=== PATIENT | female | born 1950 | race Caucasian/White ===

== ENCOUNTER → 2016-03-26 | Outpatient (CLI) | payer OTHER | LOC: CCC 13:25 | DX: E03.9 Hypothyroidism, unspecified (principal) | CPT/HCPCS: 36415; 84443 ==

== ENCOUNTER → 2016-04-09 | Outpatient (CLI) | payer OTHER | LOC: RAD 13:39 | DX: R39.15 Urgency of urination (principal); R39.14 Feeling of incomplete bladder emptying | CPT/HCPCS: 76857 ==

== ENCOUNTER → 2016-04-19 | Outpatient (CLI) | payer OTHER | LOC: CCC 13:44 | DX: E03.9 Hypothyroidism, unspecified (principal); R35.1 Nocturia | CPT/HCPCS: 36415; 84443; 87086; 87088; 87186 ==

== ENCOUNTER → 2016-06-07 | Outpatient (CLI) | payer OTHER ==
[2016-06-07 13:49] LABS: BLOOD UREA NITROGEN 17 mg/dL (7-20); CHOLESTEROL 219.77 mg/dL (0-200); CREATININE RESULT 0.74 mg/dL (0.52-1.25); Direct HDL 69 mg/dL (>40); TRIGLYCERIDES 127 mg/dL (<150)
[2016-06-07 14:01] LABS: DIRECT LDL 113 mg/dL (<100)
== END ==
LOC: CCC 11:54
DX: E03.9 Hypothyroidism, unspecified (principal); E78.5 Hyperlipidemia, unspecified; I10 Essential (primary) hypertension
CPT/HCPCS: 36415; 80061; 82565; 84443; 84520

== ENCOUNTER → 2017-07-10 | Outpatient (CLI) | payer MEDICARE, MEDICAID ==
--- NOTE | 2017-07-11 09:00 | WOMENS IMAGING REPORT ---
EXAM DESCRIPTION: 3D SCREENING MAMMO BILAT COMPLETED DATE/TIME: 07/10/2017 2:49 pm REASON FOR STUDY: ROUTINE SCREENING;Z12.31 Z12.31 ENCNTR SCREEN MAMMOGRAM FOR MALIGNANT NEOPLASM OF PATRIZIA COMPARISON: None. TECHNIQUE: Standard craniocaudal and mediolateral oblique views of each breast recorded using digita l acquisition and breast tomosynthesis. LIMITATIONS: None. FINDINGS: Findings present which are benign by mammographic criteria. No suspicious masses, calcifi cations or architectural distortion. Pertinent benign findings: Benign skin and breast parenchymal calcifications bilaterally Read with the assistance of CAD. .[facility] - R2 Cenova Version 1.3 .[facility] Imaging - R2 Cenova Version 1.3 .[facility] - R2 Cenova Version 2.4 .[facility] [place] - R2 Cenova Version 2.4 .[facility] - R2 [employer] Version 9.2 Benign mammographic findings may include one or more of the following: Smooth masses, popcorn/rim/co arse calcifications, asymmetries, post-procedure changes, and lesions with long-standing stability. IMPRESSION: BENIGN MAMMOGRAPHIC FINDINGS. BIRADS 2 BREAST DENSITY: c. The breasts are heterogeneously dense, which may obscure small masses. BIRAD: 2 BENIGN FINDING(S) RECOMMENDATION: RECOMMENDATION: ROUTINE SCREENING Please continue yearly bilateral screening mammography/tomosynthesis in July 2018 COMMENT: The patient has been notified of the results by letter per [place] requirements. Additional no tification policies are in place for contacting patient with suspicious or incomplete findings. Quality ID #225: The [employer] recommends an annual screening mammogram for women aged 40 years or over. This facility utilizes a reminder system to ensure that all patients receive reminder letters, and/or direct phone calls for appointments. This includes reminders for routine scr eening mammograms, diagnostic mammograms, or other Breast Imaging Interventions when appropriate. Th is patient will be placed in the appropriate reminder system. The [employer] (ACR) has developed recommendations for screening MRI of the breast s in certain patient populations, to be used in conjunction with mammography. Breast MRI surveillanc e may be appropriate for women with more than 20% lifetime risk of developing breast cancer as deter mined by genetic testing, significant family history of the disease, or history of mantle radiation f or Hodgkins Disease. ACR Practice Guidelines 2008. DBT Technology DBT is a type of tomographic mammography. With conventional mammography, overlapping breast tissue ma y make lesions difficult to detect, even with good compression. DBT uses an x-ray tube that rotates a round the breast, taking images at different angles. These images are then combined to create thin sl ices of the breast that the radiologist can view as a 3D reconstruction. The [employer] unit can perform full-field digital mammograms (2D imaging); or DBT (3D imaging); or both, in a combination mode that quickly performs both the mammogram and the tomosynthesis scan while the breast is still compressed. PQRS 6045F: Fluoroscopic imaging is not utilized for breast tomosynthesis. TECHNICAL DOCUMENTATION: FINDING NUMBER: (1) ASSESSMENT: (1) JOB ID: [id number] [employer]- All Rights Reserved Reading location - IP/workstation name: [facility]-RR2
== END ==
LOC: WI 13:46
PROVIDERS: ATTEND Internal Medicine
DX: Z12.31 Encounter for screening mammogram for malignant neoplasm of breast (principal)
CPT/HCPCS: 77063; 77067

== ENCOUNTER → 2017-12-03 | Outpatient (CLI) | payer MEDICARE, MEDICAID ==
--- NOTE | 2017-12-03 14:41 | RADIOLOGY REPORT (SQ) ---
EXAM DESCRIPTION: CT HEAD WITHOUT COMPLETED DATE/TIME: 12/03/2017 2:30 pm REASON FOR STUDY: TRAUMA SUBDURAL HEM W LOC >24 HR W RET CONSC LEV, INIT (S06.5X5A) S06.5X5A TRAUMA SUBDURAL HEM W LOC >24 HR W RET CONSC LEV, INIT COMPARISON: None. TECHNIQUE: Axial images acquired through the brain without intravenous contrast. Images reviewed wi th bone, brain and subdural windows. Additional sagittal and coronal reconstructions were generated. Images stored on PACS. All CT scanners at this facility use dose modulation, iterative reconstruction, and/or weight based d osing when appropriate to reduce radiation dose to as low as reasonably achievable (ALARA). [facility]: Dose Right [facility]: CareDose [facility]: Dose Right [facility]: Teradose 4D [facility]: Mobile Complete RADIATION DOSE: CT Rad equipment meets quality standard of care and radiation dose reduction techniq ues were employed. CTDIvol: 48.7 mGy. DLP: 979 mGy-cm. mGy. LIMITATIONS: None. FINDINGS: VENTRICLES: Normal size and contour. CEREBRUM: No masses. No hemorrhage. No midline shift. No evidence for acute infarction. Normal gra y/white matter differentiation. No areas of low density in the white matter. CEREBELLUM: No masses. No hemorrhage. No alteration of density. No evidence for acute infarction. EXTRAAXIAL SPACES: No fluid collections. No masses. ORBITS AND GLOBE: No intra- or extraconal masses. Normal contour of globe without masses. CALVARIUM: No fracture. PARANASAL SINUSES: Mucoperiosteal thickening in the left maxillary sinus. SOFT TISSUES: No mass or hematoma. OTHER: No other significant finding. IMPRESSION: NORMAL BRAIN CT WITHOUT CONTRAST. EVIDENCE OF ACUTE STROKE: NO. COMMENT: Quality ID # 436: Final reports with documentation of one or more dose reduction techniques (e.g., Automated exposure control, adjustment of the mA and/or kV according to patient size, use of iterative reconstruction technique) TECHNICAL DOCUMENTATION: JOB ID: [id number] [employer]- All Rights Reserved Reading location - IP/workstation name: [email or web address]
== END ==
LOC: RAD 13:49
PROVIDERS: ATTEND Internal Medicine
DX: S06.5X5A Traumatic subdural hemorrhage with loss of consciousness greater than 24 hours with return to pre-existing conscious level, initial encounter (principal); X58.XXXA Exposure to other specified factors, initial encounter; Y93.9 Activity, unspecified; Y92.9 Unspecified place or not applicable
CPT/HCPCS: 70450

== ENCOUNTER → 2018-02-13 | Outpatient (CLI) | payer MEDICARE, MEDICAID ==
--- NOTE | 2018-02-13 13:40 | RADIOLOGY REPORT (SQ) ---
EXAM DESCRIPTION: HAND BILATERAL 2 VIEWS COMPLETED DATE/TIME: 02/13/2018 1:10 pm REASON FOR STUDY: POLYARTHRITIS, UNSPECIFIED M13.0 POLYARTHRITIS, UNSPECIFIED COMPARISON: None. EXAM PARAMETERS: NUMBER OF VIEWS: Two views right hand. Two views left hand. TECHNIQUE: AP and lateral radiographic images acquired of bilateral hands. LIMITATIONS: None. FINDINGS: There is joint space narrowing base of the 1st metacarpals bilaterally. Joint space narro wing several proximal and distal interphalangeal joints. Central erosions left proximal and distal 4 th interphalangeal joints, right 3rd distal interphalangeal joint. No soft tissue calcifications IMPRESSION: Erosive osteoarthritis. TECHNICAL DOCUMENTATION: JOB ID: [id number] [employer]- All Rights Reserved Reading location - IP/workstation name: [facility]-RR2
--- NOTE | 2018-02-13 13:43 | RADIOLOGY REPORT (SQ) ---
EXAM DESCRIPTION: KNEE BILAT AP UPRIGHT COMPLETED DATE/TIME: 02/13/2018 1:10 pm REASON FOR STUDY: POLYARTHRITIS, UNSPECIFIED M13.0 POLYARTHRITIS, UNSPECIFIED COMPARISON: None. NUMBER OF VIEWS: AP views of each knee TECHNIQUE: AP standing bilateral knees. LIMITATIONS: None. FINDINGS: MINERALIZATION: Normal. RIGHT KNEE BONES: No acute fracture. No worrisome bone lesions. MEDIAL COMPARTMENT: No significant osteophytes. No joint space narrowing. No chondrocalcinosis. LATERAL COMPARTMENT: No significant osteophytes. No joint space narrowing. No chondrocalcinosis. LEFT KNEE BONES: No acute fracture. No worrisome bone lesions. MEDIAL COMPARTMENT: No significant osteophytes. No joint space narrowing. No chondrocalcinosis. LATERAL COMPARTMENT: No significant osteophytes. No joint space narrowing. No chondrocalcinosis. IMPRESSION: No significant findings. TECHNICAL DOCUMENTATION: JOB ID: [id number] [employer]- All Rights Reserved Reading location - IP/workstation name: [email or web address]
--- NOTE | 2018-02-13 13:49 | RADIOLOGY REPORT (SQ) ---
EXAM DESCRIPTION: HIPS BILATERAL COMPLETED DATE/TIME: 02/13/2018 1:10 pm REASON FOR STUDY: POLYARTHRITIS, UNSPECIFIED M13.0 POLYARTHRITIS, UNSPECIFIED COMPARISON: None. NUMBER OF VIEWS: Two views TECHNIQUE: AP pelvis and additional frog-leg view of both hips. LIMITATIONS: None. FINDINGS: MINERALIZATION: Normal. HIPS: No acute fracture or dislocation. No worrisome bone lesions. PELVIS AND SACRUM: No acute fracture or dislocation. No worrisome bone lesions. PUBIS AND ISCHIUM: No acute fracture. LOWER LUMBAR SPINE: No significant findings as visualized. SOFT TISSUES: No findings. OTHER: No other significant finding. IMPRESSION: NEGATIVE STUDY OF THE PELVIS AND HIPS. TECHNICAL DOCUMENTATION: JOB ID: [id number] [employer]- All Rights Reserved Reading location - IP/workstation name: [email or web address]
== END ==
LOC: OD 12:35
PROVIDERS: ATTEND Internal Medicine
DX: M13.0 Polyarthritis, unspecified (principal)
CPT/HCPCS: 73522; 73565

== ENCOUNTER 2018-06-12 04:13 | Inpatient (IN) | payer MEDICARE, MEDICAID ==
[2018-06-12] MEDS ORDERED: RINGERS SOLUTION,LACTATED 1,000 ML IV ONE (04:39)
[2018-06-12] MEDS ORDERED: ONDANSETRON HCL INJ/PF 4 MG/2 ML SDV IV ONE (04:40)
[2018-06-12 04:55] LABS: MEAN CORPUSCULAR HEMOGLOBIN 29.4 pg (27.0-33.4); MEAN CORPUSCULAR HGB CONC 35.2 g/dL (32.0-36.0); MEAN CORPUSCULAR VOLUME 83 fl (80-97); PLATELET COUNT 176 10^3/uL (150-450); RED BLOOD COUNT 4.07 10^6/uL (3.72-5.28); RED CELL DISTRIBUTION WIDTH 13.8 % (11.5-14.0); WHITE BLOOD COUNT 19.3 10^3/uL (4.0-10.5)
[2018-06-12 05:19] LABS: ALANINE AMINOTRANSFERASE 23 U/L (9-52); ALBUMIN 3.8 g/dL (3.5-5.0); ALKALINE PHOSPHATASE 79 U/L (38-126); ANION GAP 18 (5-19); ASPARTATE AMINO TRANSFERASE 25 U/L (14-36); BILIRUBIN,DIRECT 0.7 mg/dL (0.0-0.4); BILIRUBIN,TOTAL 0.8 mg/dL (0.2-1.3); BLOOD UREA NITROGEN 56 mg/dL (7-20); CALCIUM 9.4 mg/dL (8.4-10.2); CARBON DIOXIDE 13 mmol/L (22-30); CHLORIDE 97 mmol/L (98-107); GLUCOSE 129 mg/dL (75-110); LIPASE 18.7 U/L (23-300); POTASSIUM 3.5 mmol/L (3.6-5.0); SODIUM 128.2 mmol/L (137-145); TOTAL PROTEIN 6.5 g/dL (6.3-8.2)
--- NOTE | 2018-06-12 05:26 | RADIOLOGY REPORT (SQ) ---
EXAM DESCRIPTION: CT ABDOMEN PELVIS WITHOUT IV CONTRAST COMPLETED DATE/TME: 06/12/2018 04:39 CLINICAL HISTORY: 68 years, Female, general pain/vomiting COMPARISON: None. TECHNIQUE: 341 Images stored on PACS. All CT scanners at this facility use dose modulation, iterative reconstruction, and/or weight based dosing when appropriate to reduce radiation dose to as low as reasonably achievable (ALARA). [facility]: Dose Right [facility]: CareDose [facility]: Dose Right [facility]: Teradose 4D [facility]: [facility] LIMITATIONS: None. FINDINGS: Visualized lung bases are unremarkable. Osseous structures are grossly intact. Fatty infiltrative change to the liver. The spleen, adrenal glands, pancreas, kidneys are unremarkable. Status post cholecystectomy. No gross evidence for bowel obstruction. Moderate atheromatous change. Normal appendix. No free air or free fluid.. IMPRESSION: Fatty infiltrative change to the liver. Status post cholecystectomy. Moderate atheromatous change TECHNICAL DOCUMENTATION: Quality ID # 436: Final reports with documentation of one or more dose reduction techniques (e.g., Automated exposure control, adjustment of the mA and/or kV according to patient size, use of iterative reconstruction technique) copyright 2011 [employer]- All Rights Reserved
[2018-06-12] MEDS ORDERED: NORMAL SALINE 1000 ML 1,000 ML IV ONE ×2 (05:28→05:32)
[2018-06-12 05:29] LABS: ABSOLUTE LYMPHOCYTES# (MANUAL) 1.4 10^3/uL (0.5-4.7); ABSOLUTE MONOCYTES # (MANUAL) 0.8 10^3/uL (0.1-1.4); ABSOLUTE NEUTROPHILS# (MANUAL) 17.2 10^3/uL (1.7-8.2); BASOPHILS % (MANUAL) 0 % (0-2); EOSINOPHILS % (MANUAL) 0 % (0-6); LYMPHOCYTES % (MANUAL) 7 % (13-45); MONOCYTES % (MANUAL) 4 % (3-13); RBC MORPHOLOGY COMMENT NORMO-CYTIC/CHROMIC; SEGMENTED NEUTROPHILS % (MAN) 89 % (42-78); TOTAL CELLS COUNTED 100; TOXIC GRANULATION SLIGHT
[2018-06-12 05:30] LABS: PLATELET COMMENT ADEQUATE
[2018-06-12] MEDS ORDERED: PANTOPRAZOLE SODIUM 40 MG VIAL IV ONE (06:11)
[2018-06-12] MEDS ORDERED: PANTOPRAZOLE SODIUM 40 MG VIAL IV PRN (06:11)
[2018-06-12] MEDS ORDERED: NOREPINEPHRINE BITARTRATE INJ/PF 4 MG/4 ML SDV IV ONE (06:18)
--- NOTE | 2018-06-12 06:30 | ER Document Report ---
ED General <JESÚS RIZZO - Last Filed: 06/12/18 07:04> - General TRAVEL OUTSIDE OF THE [place] IN LAST 30 DAYS: No <GARRY DUKES - Last Filed: 06/12/18 08:24> - General Chief Complaint: Shortness Of Breath Stated Complaint: SHORTNESS OF BREATH,NAUSEA,DIARRHEA Time Seen by Provider: 06/12/18 04:38 Primary Care Provider: DORIS HU MD [Primary Care Provider] - Follow up as needed Notes: Patient is a 68-year-old female presents to the emergency department for generalized nausea, vomiting, diarrhea for the last 4 days. Patient states she is unsure of how many episodes of vomiting or diarrhea she has had because it is so many. Patient states the last couple of days she has noted that her stool is a dark black color. Patient also states that she has vomited streaks of bright red blood for the last 24 hours. Patient is denying any antibiotic use for the last 30 days. Patient is complaining of generalized "all over" abdominal pain. Past medical history: Gastrointestinal bleeding, IBS, hyperlipidemia, hypertensi on, hypothyroid, lupus Medications: Robaxin, Benicar, atorvastatin, levothyroxine, metoprolol Allergies: Sulfa Surgical history: Cholecystectomy (GARRY DUKES) - Related Data Allergies/Adverse Reactions: Sulfa (Sulfonamide Antibiotics) Allergy (Verified 01/17/16 08:07) Past Medical History - General Information source: Patient, Emergency Med Personnel - Social History Smoking Status: Unknown if Ever Smoked Family History: Reviewed & Not Pertinent - Past Medical History Cardiac Medical History: Reports: Hx Coronary Artery Disease - CHOLESTROL, Hx Hypertension Denies: Hx Heart Attack Pulmonary Medical History: Denies: Hx Asthma, Hx Bronchitis, Hx COPD, Hx Pneumonia Neurological Medical History: Denies: Hx Cerebrovascular Accident, Hx Seizures Musculoskeletal Medical History: Reports Hx Arthritis - Immunizations Hx Diphtheria, Pertussis, Tetanus Vaccination: No <GARRY DUKES - Last Filed: 06/12/18 08:24> Review of Systems - Review of Systems Constitutional: No symptoms reported EENT: No symptoms reported Cardiovascular: No symptoms reported Respiratory: No symptoms reported Gastrointestinal: See HPI Genitourinary: See HPI Female Genitourinary: No symptoms reported Musculoskeletal: No symptoms reported Skin: No symptoms reported Hematologic/Lymphatic: See HPI Neurological/Psychological: No symptoms reported <GARRY DUKES - Last Filed: 06/12/18 08:24> Physical Exam <GARRY DUKES - Last Filed: 06/12/18 08:24> - Vital signs Vitals: Temp Pulse Resp BP Pulse Ox 97.9 F 91 16 74/51 L 100 06/12/18 04:24 06/12/18 04:24 06/12/18 04:24 06/12/18 04:24 06/12/18 04:24 - Notes Notes: GENERAL: Alert, interacts well. No acute distress. HEAD: Normocephalic, atraumatic. EYES: Pupils equal, round, and reactive to light. Extraocular movements intact. ENT: Oral mucosa moist, tongue midline. NECK: Full range of motion. Supple. Trachea midline. LUNGS: Clear to auscultation bilaterally, no wheezes, rales, or rhonchi. No respiratory distress. HEART: Regular rate and rhythm. No murmur ABDOMEN: Soft, Non-distended. Bowel sounds present in all 4 quadrants. Generalized tenderness all 4 quadrants. EXTREMITIES: Moves all 4 extremities spontaneously. No edema, normal radial and dorsalis pedis pulses bilaterally. No cyanosis. BACK: no cervical, thoracic, lumbar midline tenderness. No saddle anesthesia, normal distal neurovascular exam. NEUROLOGICAL: Alert and oriented x3. Normal speech. cranial nerves II through XII grossly intact PSYCH: Normal affect, normal mood. SKIN: Pallor, warm, dry, normal turgor. No rashes or lesions noted. (GARRY DUKES) Course - Laboratory Result Diagrams: 06/12/18 04:45 06/12/18 04:45 <JESÚS RIZZO - Last Filed: 06/12/18 07:04> - Laboratory Result Diagrams: 06/12/18 04:45 06/12/18 04:45 <GARRY DUKES - Last Filed: 06/12/18 08:24> - Re-evaluation Re-evalutation: 06/12/18 06:30 Patient was reported to me by the physician assistant reading teacher. She says patient started become hypotensive and has been having diarrhea and vomiting for several days. She is received a liter and half of fluids already. I went to evaluate the patient. Patient does have some dental tenderness over the lower portion of her abdomen. She admits to me that she has been having dark and tarry stools. She said occasionally when she vomits it will be a small amount of blood in it. I did have the PA perform a rectal exam and guaiac which was guaiac positive. Despite 2 L of fluids the patient is still hypotensive and therefore I will place a central line and start her on Levophed. We will also start a Protonix drip. 06/12/18 07:04 Central line placed. Patient had no comp occasions during some trauma placement. Chest x-ray confirms placement. Levophed started through central line. (JESÚS RIZZO) Patient's labs do show leukocytosis of 19.3, hemoglobin and hematocrit are 12.0 and 34 respectively. Patient's sodium level was noted to be 128.2 with a potassium of 3.5. Creatinine noted 3.66. Patient's urine does show signs of urinary tract infection, ceftriaxone started. Patient's guaiac stool was positive, although no obvious signs of melena or tony bright red blood. Patient CT abdomen pelvis revealed no signs of abnormalities besides fatty infiltrated liver. Patient's blood pressure remains hypotensive at 73/45 despite 2 L of fluid resuscitation. Discussed this case with my attending Dr. Rizzo who has agreed the patient should have a central line with levofed started. Protonix drip was ordered and started. Discussed this case with patient's primary care provider Dr. Hu who will admit the patient for continued care. (GARRY DUKES) - Vital Signs Vital signs: Temp Pulse Resp BP Pulse Ox 97.9 F 91 14 103/68 95 06/12/18 04:24 06/12/18 04:24 06/12/18 07:32 06/12/18 07:32 06/12/18 07:32 - Laboratory Laboratory results interpreted by me: 06/12/18 06/12/18 06/12/18 04:45 04:45 05:35 WBC 19.3 H Hct 34.0 L Seg Neuts % (Manual) 89 H Lymphocytes % (Manual) 7 L Abs Neuts (Manual) 17.2 H Sodium 128.2 L Potassium 3.5 L Chloride 97 L Carbon Dioxide 13 L BUN 56 H Creatinine 3.66 H Est GFR ( Amer) 15 L Est GFR (Non-Af Amer) 12 L Glucose 129 H Direct Bilirubin 0.7 H Lipase 18.7 L Urine Protein 100 H Urine Blood SMALL H Urine Bilirubin SMALL H Ur Leukocyte Esterase LARGE H Procedures - Central Line Right Internal jugular Consent obtained: Yes Central line pre-insertion: Chloraprep applied Central line lumen type: Triple Anesthetic type: 1% Lidocaine mL's of anesthesia: 2 Ultrasound guided: Yes CM at insertion site: 15 Line secured with sutures: Yes Central line post-insertion: Blood return from lumens, Biopatch applied, Sut ured, Sterile dressing applied, Position confirmed w/ CXR Number of attempts: 1 Complications: No <JESÚS RIZZO - Last Filed: 06/12/18 07:04> Critical Care Note - Critical Care Note Total time excluding time spent on procedures (mins): 40 <GARRY DUKES - Last Filed: 06/12/18 08:24> - Critical Care Note Comments: Please allow for 40 minutes of critical care time as patient presented to the emergency department hypotensive. Initial treatments were unsuccessful patient needed a central line placement with Levophed started. Multiple reassessments of the patient's were performed. (GARRY DUKES) Discharge <JESÚS RIZZO - Last Filed: 06/12/18 07:04> - Discharge Admitting Provider: Luis Carlos Unit Admitted: ICU <GARRY DUKES - Last Filed: 06/12/18 08:24> - Discharge Clinical Impression: Hyponatremia, Nausea vomiting and diarrhea Hypotension Qualifiers: Hypotension type: unspecified hypotension type Qualified Code(s): I95.9 - Hypotension, unspecified Gastrointestinal bleeding Qualifiers: GI bleed type/associated pathology: unspecified gastrointestinal hemorrhage type Qualified Code(s): K92.2 - Gastrointestinal hemorrhage, unspecified Condition: Fair Disposition: ADMITTED INPATIENT Referrals: DORIS HU MD [Primary Care Provider] - Follow up as needed
[2018-06-12 06:48] LABS: APPEARANCE,URINE TURBID; BILIRUBIN,URINE SMALL (NEGATIVE); COLOR,URINE AMBER; GLUCOSE, URINE NEGATIVE (NEGATIVE); KETONES,URINE NEGATIVE (NEGATIVE); LEUKOCYTE ESTERASE,URINE LARGE (NEGATIVE); NITRITE,URINE NEGATIVE (NEGATIVE); PROTEIN,URINE 100 mg/dL (NEGATIVE); URINE SPECIFIC GRAVITY 1.021; UROBILINOGEN,URINE NEGATIVE mg/dL (<2.0)
[2018-06-12] MEDS ORDERED: DEXTROSE 5%-WATER 250 ML with NOREPINEPHRINE BITARTRATE 4 MG IV PRN ×4 (06:57→22:40)
--- NOTE | 2018-06-12 07:34 | RADIOLOGY REPORT (SQ) ---
EXAM DESCRIPTION: X-ray single view chest. CLINICAL HISTORY: 68 years Female, CENTRAL LINE PLACEMENT COMPARISON: None. TECHNIQUE: Single portable x-ray view of the chest performed on 06/12/2018 at 7:05 AM FINDINGS: The lungs are well expanded and are clear. There is no evidence of a pneumothorax. The cardiac silhouette is normal in size and configuration. The mediastinal contours are normal. No acute osseous abnormality is identified. No focal soft tissue abnormalities are seen. Lines and tubes: A right IJ central venous catheter is present. The tip overlies the region of the proximal superior vena cava. IMPRESSION: 1. No definite acute intrathoracic disease. 2. The tip of the right IJ central venous catheter overlies the region of the proximal SVC.
[2018-06-12] MEDS ORDERED: CEFTRIAXONE 1 GM/D5W RTU 1 GM/50 ML RTUPB IV ONE (08:30)
[2018-06-12 08:47] LABS: INTERNATIONAL RATION (INR) 1.04; PROTHROMBIN TIME 14.2 SEC (11.4-15.4)
[2018-06-12 08:48] LABS: PARTIAL THROMBOPLASTIN TIME 37.2 SEC (23.5-35.8)
[2018-06-12 09:22] LABS: ARTERIAL BLOOD BASE EXCESS -4.7 mmol/L; ARTERIAL BLOOD H2CO3 0.83 mmol/L (1.05-1.35); ARTERIAL BLOOD HCO3 17.8 mmol/L (20-24); ARTERIAL BLOOD PCO2 27.5 mmHg (35-45); ARTERIAL BLOOD PH 7.43 (7.35-7.45); ARTERIAL BLOOD PO2 87.7 mmHg (80-100); ARTERIAL BLOOD TOTAL CO2 18.7 mmol/L (21-25)
[2018-06-12 09:23] LABS: ARTERIAL BLOOD FIO2 ROOM AIR
[2018-06-12] MEDS: NORMAL SALINE 1000 ML 1,000 ML IV PRN ×2 (09:40→19:42)
[2018-06-12] MEDS: METRONIDAZOLE 500 MG/NS RTU 500 MG/100 ML RTUPB IV SCH ×3 (09:40→20:31)
[2018-06-12 09:43] LABS: LIPASE 20.2 U/L (23-300); PHOSPHORUS 2.5 mg/dL (2.5-4.5)
[2018-06-12 09:59] LABS: FREE T4 (FREE THYROXINE) 1.89 ng/dL (0.78-2.19)
[2018-06-12 10:13] LABS: THYROID STIMULATING HORMONE 11.7 uIU/mL (0.47-4.68)
[2018-06-12] MEDS: ACETAMINOPHEN 325 MG TABLET PO PRN (13:10)
[2018-06-12] MEDS: ONDANSETRON HCL INJ/PF 4 MG/2 ML SDV IV PRN ×2 (13:10→19:41)
[2018-06-12 21:08] LABS: ABSOLUTE LYMPHOCYTES (AUTO) 0.7 10^3/uL (0.5-4.7); ABSOLUTE MONOCYTES (AUTO) 0.9 10^3/uL (0.1-1.4); ABSOLUTE NEUT (AUTO) 11.8 10^3/uL (1.7-8.2); BASOPHILS % (AUTO) 0.1 % (0-2); HEMATOCRIT 26.5 % (36.0-47.0); LYMPHOCYTES % (AUTO) 5.3 % (13-45); MEAN CORPUSCULAR HEMOGLOBIN 29.9 pg (27.0-33.4); MEAN CORPUSCULAR HGB CONC 35.5 g/dL (32.0-36.0); MEAN CORPUSCULAR VOLUME 84 fl (80-97); MONOCYTES % (AUTO) 6.8 % (3-13); PLATELET COUNT 130 10^3/uL (150-450); RED BLOOD COUNT 3.15 10^6/uL (3.72-5.28); RED CELL DISTRIBUTION WIDTH 13.7 % (11.5-14.0); SEGMENTED NEUTROPHILS % (AUTO) 87.8 % (42-78); TOTAL CELLS COUNTED % (AUTO) 100 %; WHITE BLOOD COUNT 13.4 10^3/uL (4.0-10.5)
[2018-06-12 21:09] LABS: HEMOGLOBIN 9.4 g/dL (12.0-15.5)
--- NOTE | 2018-06-12 21:10 | PDOC H&P ---
History of Present Illness Admission Date/PCP: 06/12/18 08:24 DORIS HU MD History of Present Illness: AGUSTIN POND is a 68 year old female, She came to the emergency room for evaluation of profuse diarrhea and vomiting for the last 5 days. She said that she started having diarrhea and vomiting since Saturday of this week, the diarrhea was loose, it was melanotic, she said she also vomited blood today, that is why she decided to come to the emergency room for evaluation. In the emergency room she was found to be hypotensive, there was associated leukocytosis WBC was 19.3 with a left shift, there is hyponatremia, sodium 128 hypokalemia potassium 3.5. In the emergency room she was resuscitated with IV fluids and also intravenous norepinephrine. Patient was admitted to intensive care unit, I saw her in the unit the low blood pressure is mainly from volume loss there was associated acute kidney injury most likely prerenal. She has been losing volume for the last 5 days, what she needed most is volume replenishment, the intravenous norepinephrine is discontinued Past Medical History Cardiac Medical History: Reports: Hypertension Musculoskeltal Medical History: Reports: Arthritis Social History Smoking Status: Current Every Day Smoker Cigarettes Packs Per Day: 0.5 Frequency of Alcohol Use: Occasional Hx Recreational Drug Use: No Drugs: None Hx Prescription Drug Abuse: No Family History Family History: Reviewed & Not Pertinent Parental Family History Reviewed: Yes Children Family History Reviewed: Yes Sibling(s) Family History Reviewed.: Yes Medication/Allergy Home Medications: Atorvastatin Calcium [Lipitor 20 mg Tablet] 20 mg PO QHS 06/12/18 Chlorpheniramine Maleate [Chlor-Trimeton 4 mg Tablet] 4 mg PO Q6HP PRN 06/12/18 Dexlansoprazole [Dexilant 60 mg Capsule] 60 mg PO DAILY 06/12/18 Hydroxychloroquine Sulfate [Plaquenil 200 mg Tablet] 200 mg PO BID 06/12/18 Levothyroxine Sodium [Synthroid 0.1 mg Tablet] 0.1 mg PO Q6AM 06/12/18 Meloxicam [Mobic] 7.5 mg PO DAILY 06/12/18 Methocarbamol [Robaxin 500 mg Tablet] 500 mg PO Q6HP PRN 06/12/18 Metoprolol Tartrate [Lopressor 50 mg Tablet] 50 mg PO Q12 06/12/18 Montelukast Sodium [Singulair 10 mg Tablet] 10 mg PO DAILY 06/12/18 Olmesartan/Hydrochlorothiazide [Olmesartan-Hctz 40-12.5 mg Tab] 1 tab PO DAILY 06/12/18 Allergies/Adverse Reactions: Sulfa (Sulfonamide Antibiotics) Allergy (Verified 01/17/16 08:07) Review of Systems Constitutional: PRESENT: chills, fatigue, fever(s), weakness Eyes: ABSENT: visual disturbances Ears: ABSENT: hearing changes Cardiovascular: PRESENT: dyspnea on exertion, palpitations. ABSENT: chest pain, edema, orthropnea Respiratory: ABSENT: cough, hemoptysis Gastrointestinal: PRESENT: diarrhea, melena, vomiting Genitourinary: ABSENT: dysuria, hematuria Musculoskeletal: ABSENT: joint swelling Integumentary: ABSENT: rash, wounds Neurological: ABSENT: abnormal gait, abnormal speech, confusion, dizziness, focal weakness, syncope Psychiatric: ABSENT: anxiety, depression, homidical ideation, suicidal ideation Endocrine: ABSENT: cold intolerance, heat intolerance, menstrual abnormalities, polydipsia, polyuria Hematologic/Lymphatic: ABSENT: easy bleeding, easy bruising, lymphadenopathy Physical Exam Vital Signs: Temp Pulse Resp BP Pulse Ox 100.2 F 78 16 90/59 L 97 06/12/18 16:00 06/12/18 18:00 06/12/18 18:00 06/12/18 18:00 06/12/18 18:00 Intake & Output 06/11/18 06/12/18 06/13/18 06:59 06:59 06:59 Intake Total 1999 1373 Output Total 580 Balance 1999 793 Weight 58.4 kg 61.4 kg General appearance: PRESENT: other - Patient was seen by the bedside she is alert she is oriented clinically dehydrated Head exam: PRESENT: atraumatic, normocephalic Eye exam: PRESENT: conjunctiva pink, EOMI, PERRLA Mouth exam: PRESENT: dry mucosa Neck exam: PRESENT: full ROM Respiratory exam: PRESENT: clear to auscultation lucinda Cardiovascular exam: PRESENT: RRR, +S1, +S2 Vascular exam: PRESENT: normal capillary refill GI/Abdominal exam: PRESENT: normal bowel sounds, soft Rectal exam: PRESENT: deferred Neurological exam: PRESENT: alert, CN II-XII grossly intact Psychiatric exam: PRESENT: appropriate affect, normal mood Skin exam: PRESENT: dry, intact, warm Results Laboratory Results: 06/12/18 04:45 06/12/18 04:45 06/12/18 06/12/18 06/12/18 04:45 04:45 04:45 WBC 19.3 H RBC 4.07 Hgb 12.0 Hct 34.0 L MCV 83 MCH 29.4 MCHC 35.2 RDW 13.8 Plt Count 176 Seg Neutrophils % Not Reportable Lymphocytes % Not Reportable Monocytes % Not Reportable Eosinophils % Not Reportable Basophils % Not Reportable Absolute Neutrophils Not Reportable Absolute Lymphocytes Not Reportable Absolute Monocytes Not Reportable Absolute Eosinophils Not Reportable Absolute Basophils Not Reportable Carbonic Acid HCO3/H2CO3 Ratio ABG pH ABG pCO2 ABG pO2 ABG HCO3 ABG O2 Saturation ABG Base Excess FiO2 Sodium 128.2 L Potassium 3.5 L Chloride 97 L Carbon Dioxide 13 L Anion Gap 18 BUN 56 H Creatinine 3.66 H Est GFR ( Amer) 15 L Est GFR (Non-Af Amer) 12 L Glucose 129 H Lactic Acid 1.8 Calcium 9.4 Phosphorus Magnesium Total Bilirubin 0.8 AST 25 ALT 23 Alkaline Phosphatase 79 Ammonia Total Protein 6.5 Albumin 3.8 Amylase Lipase 18.7 L TSH Free T4 Urine Color Urine Appearance Urine pH Ur Specific Nikolai Urine Protein Urine Glucose (UA) Urine Ketones Urine Blood Urine Nitrite Ur Leukocyte Esterase Urine WBC (Auto) Urine RBC (Auto) 06/12/18 06/12/18 06/12/18 04:45 04:45 05:35 WBC RBC Hgb Hct MCV MCH MCHC RDW Plt Count Seg Neutrophils % Lymphocytes % Monocytes % Eosinophils % Basophils % Absolute Neutrophils Absolute Lymphocytes Absolute Monocytes Absolute Eosinophils Absolute Basophils Carbonic Acid HCO3/H2CO3 Ratio ABG pH ABG pCO2 ABG pO2 ABG HCO3 ABG O2 Saturation ABG Base Excess FiO2 Sodium Potassium Chloride Carbon Dioxide Anion Gap BUN Creatinine Est GFR ( Amer) Est GFR (Non-Af Amer) Glucose Lactic Acid Calcium Phosphorus 2.5 Magnesium 1.3 L Total Bilirubin AST ALT Alkaline Phosphatase Ammonia Total Protein Albumin Amylase 45 Lipase 20.2 L TSH 11.70 H Free T4 1.89 Urine Color ESTEBAN Urine Appearance TURBID Urine pH 5.0 Ur Specific Nikolai 1.021 Urine Protein 100 H Urine Glucose (UA) NEGATIVE Urine Ketones NEGATIVE Urine Blood SMALL H Urine Nitrite NEGATIVE Ur Leukocyte Esterase LARGE H Urine WBC (Auto) >182 Urine RBC (Auto) 41 06/12/18 06/12/18 08:40 09:06 WBC RBC Hgb Hct MCV MCH MCHC RDW Plt Count Seg Neutrophils % Lymphocytes % Monocytes % Eosinophils % Basophils % Absolute Neutrophils Absolute Lymphocytes Absolute Monocytes Absolute Eosinophils Absolute Basophils Carbonic Acid 0.83 L HCO3/H2CO3 Ratio 21:1 ABG pH 7.43 ABG pCO2 27.5 L ABG pO2 87.7 ABG HCO3 17.8 L ABG O2 Saturation 97.0 ABG Base Excess -4.7 FiO2 ROOM AIR Sodium Potassium Chloride Carbon Dioxide Anion Gap BUN Creatinine Est GFR ( Amer) Est GFR (Non-Af Amer) Glucose Lactic Acid Calcium Phosphorus Magnesium Total Bilirubin AST ALT Alkaline Phosphatase Ammonia < 8.7 L Total Protein Albumin Amylase Lipase TSH Free T4 Urine Color Urine Appearance Urine pH Ur Specific Nikolai Urine Protein Urine Glucose (UA) Urine Ketones Urine Blood Urine Nitrite Ur Leukocyte Esterase Urine WBC (Auto) Urine RBC (Auto) 06/12/18 06/12/18 06/12/18 08:40 08:40 14:24 Creatine Kinase 105 108 Troponin I < 0.012 06/12/18 14:24 Creatine Kinase Troponin I < 0.012 Impressions: Chest X-Ray 06/12/18 00:00 IMPRESSION: 1. No definite acute intrathoracic disease. 2. The tip of the right IJ central venous catheter overlies the region of the proximal SVC. Abdomen/Pelvis CT 06/12/18 04:39 IMPRESSION: Fatty infiltrative change to the liver. Status post cholecystectomy. Moderate atheromatous change TECHNICAL DOCUMENTATION: Quality ID # 436: Final reports with documentation of one or more dose reduction techniques (e.g., Automated exposure control, adjustment of the mA and/or kV according to patient size, use of iterative reconstruction technique) copyright 2011 [employer]- All Rights Reserved Assessment & Plan - Diagnosis (1) Hypotension Qualifiers: Hypotension type: unspecified hypotension type Qualified Code(s): I95.9 - Hypotension, unspecified Is this a current diagnosis for this admission?: Yes Plan: She has severe low blood pressure due to volume depletion she will be volume replenished (2) Acute kidney injury Is this a current diagnosis for this admission?: Yes Plan: The acute kidney injury is prerenal due to volume loss (3) Acute gastroenteritis Is this a current diagnosis for this admission?: Yes Plan: She has hemorrhagic gastroenteritis, the differential diagnosis include C. difficile colitis, Shigella, the stool will be sent for C. difficile toxin and other pathogens, she will empirically be treated with IV Flagyl (4) Hyponatremia Is this a current diagnosis for this admission?: Yes Plan: This is due to hyponatremic hypovolemia
[2018-06-12 21:15] LABS: ALANINE AMINOTRANSFERASE 33 U/L (9-52); ALBUMIN 2.5 g/dL (3.5-5.0); ALKALINE PHOSPHATASE 55 U/L (38-126); ANION GAP 10 (5-19); ASPARTATE AMINO TRANSFERASE 21 U/L (14-36); BILIRUBIN,DIRECT 0.3 mg/dL (0.0-0.4); BILIRUBIN,TOTAL 0.3 mg/dL (0.2-1.3); BLOOD UREA NITROGEN 40 mg/dL (7-20); CALCIUM 7.9 mg/dL (8.4-10.2); CARBON DIOXIDE 19 mmol/L (22-30); CHLORIDE 103 mmol/L (98-107); GLUCOSE 116 mg/dL (75-110); SODIUM 132.2 mmol/L (137-145); TOTAL PROTEIN 4.8 g/dL (6.3-8.2)
[2018-06-13] MEDS: ACETAMINOPHEN 325 MG TABLET PO PRN ×4 (00:35→23:25)
[2018-06-13] MEDS: POTASSI CL 20 MEQ/50 ML RIDER 20 MEQ/50 ML RTUPB IV SCH ×2 (00:35→01:48)
[2018-06-13] MEDS: ONDANSETRON HCL INJ/PF 4 MG/2 ML SDV IV PRN ×4 (01:38→23:25)
[2018-06-13] MEDS ORDERED: NOREPINEPHRINE BITARTRATE INJ/PF 4 MG/4 ML SDV IV ONE (02:01)
[2018-06-13] MEDS: METRONIDAZOLE 500 MG/NS RTU 500 MG/100 ML RTUPB IV SCH ×4 (03:58→21:06)
[2018-06-13] MEDS: NORMAL SALINE 1000 ML 1,000 ML IV PRN ×2 (03:59→20:02)
[2018-06-13 04:13] LABS: ABSOLUTE LYMPHOCYTES (AUTO) 0.7 10^3/uL (0.5-4.7); ABSOLUTE MONOCYTES (AUTO) 1.1 10^3/uL (0.1-1.4); ABSOLUTE NEUT (AUTO) 11.1 10^3/uL (1.7-8.2); BASOPHILS % (AUTO) 0.2 % (0-2); HEMATOCRIT 26.4 % (36.0-47.0); HEMOGLOBIN 9.4 g/dL (12.0-15.5); LYMPHOCYTES % (AUTO) 5.4 % (13-45); MEAN CORPUSCULAR HEMOGLOBIN 29.9 pg (27.0-33.4); MEAN CORPUSCULAR HGB CONC 35.6 g/dL (32.0-36.0); MEAN CORPUSCULAR VOLUME 84 fl (80-97); MONOCYTES % (AUTO) 8.8 % (3-13); PLATELET COUNT 137 10^3/uL (150-450); RED BLOOD COUNT 3.15 10^6/uL (3.72-5.28); RED CELL DISTRIBUTION WIDTH 13.9 % (11.5-14.0); SEGMENTED NEUTROPHILS % (AUTO) 85.6 % (42-78); TOTAL CELLS COUNTED % (AUTO) 100 %
[2018-06-13 04:27] LABS: ALANINE AMINOTRANSFERASE 31 U/L (9-52); ALBUMIN 2.5 g/dL (3.5-5.0); ALKALINE PHOSPHATASE 57 U/L (38-126); ANION GAP 8 (5-19); ASPARTATE AMINO TRANSFERASE 20 U/L (14-36); BILIRUBIN,DIRECT 0.4 mg/dL (0.0-0.4); BILIRUBIN,TOTAL 0.4 mg/dL (0.2-1.3); BLOOD UREA NITROGEN 33 mg/dL (7-20); CALCIUM 8.2 mg/dL (8.4-10.2); CARBON DIOXIDE 17 mmol/L (22-30); CHLORIDE 110 mmol/L (98-107); CHOLESTEROL 57.69 mg/dL (0-200); GLUCOSE 100 mg/dL (75-110); POTASSIUM 3.5 mmol/L (3.6-5.0); SODIUM 134.7 mmol/L (137-145); TOTAL PROTEIN 4.7 g/dL (6.3-8.2); TRIGLYCERIDES 129 mg/dL (<150)
[2018-06-13 04:48] LABS: DIRECT LDL < 30 mg/dL (<100)
--- NOTE | 2018-06-13 21:05 | PDOC PROGRESS REPORT ---
Subjective Progress Note for:: 06/13/18 Subjective:: Patient was seen by the bedside she has not had any diarrhea since she was admitted, stool evaluation could not be done for C. difficile toxin and other pathogens. She was empirically treated with Flagyl for presumptive C. difficile toxemia, I suspect C. difficile because she was exposed to antibiotic for a prolonged duration for the treatment of purulent otitis media Reason For Visit: HYPOTENSION, ACUTE KIDNEY INJURY, DIARRHEA Physical Exam Vital Signs: Temp Pulse Resp BP Pulse Ox 98.8 F 77 30 H 100/56 L 97 06/13/18 20:00 06/13/18 20:00 06/13/18 20:00 06/13/18 19:56 06/13/18 20:00 Intake & Output 06/12/18 06/13/18 06/14/18 06:59 06:59 06:59 Intake Total 1999 2845 2060 Output Total 1830 500 Balance 1999 1015 1560 Weight 58.4 kg 63.4 kg General appearance: PRESENT: no acute distress Eye exam: PRESENT: PERRLA Respiratory exam: PRESENT: clear to auscultation lucinda Cardiovascular exam: PRESENT: +S1, +S2 GI/Abdominal exam: PRESENT: soft Neurological exam: PRESENT: alert, CN II-XII grossly intact Results Laboratory Results: 06/13/18 04:05 06/13/18 04:05 06/12/18 06/12/18 06/13/18 20:53 20:53 04:05 WBC 13.4 H RBC 3.15 L Hgb 9.4 L D Hct 26.5 L MCV 84 MCH 29.9 MCHC 35.5 RDW 13.7 Plt Count 130 L Seg Neutrophils % 87.8 H Lymphocytes % 5.3 L Monocytes % 6.8 Eosinophils % 0.0 Basophils % 0.1 Absolute Neutrophils 11.8 H Absolute Lymphocytes 0.7 Absolute Monocytes 0.9 Absolute Eosinophils 0.0 Absolute Basophils 0.0 Sodium 132.2 L 134.7 L Potassium 3.0 L* 3.5 L Chloride 103 110 H Carbon Dioxide 19 L 17 L Anion Gap 10 8 BUN 40 H 33 H Creatinine 2.10 H 1.74 H Est GFR ( Amer) 29 L 35 L Est GFR (Non-Af Amer) 24 L 29 L Glucose 116 H 100 Calcium 7.9 L 8.2 L Total Bilirubin 0.3 0.4 AST 21 20 ALT 33 31 Alkaline Phosphatase 55 57 Total Protein 4.8 L 4.7 L Albumin 2.5 L 2.5 L Triglycerides 129 Cholesterol 57.69 LDL Cholesterol Direct < 30 VLDL Cholesterol 26.0 HDL Cholesterol 22 L 06/13/18 04:05 WBC 13.0 H RBC 3.15 L Hgb 9.4 L Hct 26.4 L MCV 84 MCH 29.9 MCHC 35.6 RDW 13.9 Plt Count 137 L Seg Neutrophils % 85.6 H Lymphocytes % 5.4 L Monocytes % 8.8 Eosinophils % 0.0 Basophils % 0.2 Absolute Neutrophils 11.1 H Absolute Lymphocytes 0.7 Absolute Monocytes 1.1 Absolute Eosinophils 0.0 Absolute Basophils 0.0 Sodium Potassium Chloride Carbon Dioxide Anion Gap BUN Creatinine Est GFR ( Amer) Est GFR (Non-Af Amer) Glucose Calcium Total Bilirubin AST ALT Alkaline Phosphatase Total Protein Albumin Triglycerides Cholesterol LDL Cholesterol Direct VLDL Cholesterol HDL Cholesterol 06/12/18 06/12/18 06/12/18 08:40 08:40 14:24 Creatine Kinase 105 108 Troponin I < 0.012 06/12/18 06/12/18 06/12/18 14:24 20:17 20:53 Creatine Kinase 87 Troponin I < 0.012 < 0.012 Impressions: Chest X-Ray 06/12/18 00:00 IMPRESSION: 1. No definite acute intrathoracic disease. 2. The tip of the right IJ central venous catheter overlies the region of the proximal SVC. Abdomen/Pelvis CT 06/12/18 04:39 IMPRESSION: Fatty infiltrative change to the liver. Status post cholecystectomy. Moderate atheromatous change TECHNICAL DOCUMENTATION: Quality ID # 436: Final reports with documentation of one or more dose reduction techniques (e.g., Automated exposure control, adjustment of the mA and/or kV according to patient size, use of iterative reconstruction technique) copyright 2011 [employer]- All Rights Reserved Assessment & Plan - Diagnosis (1) Hypotension Qualifiers: Hypotension type: unspecified hypotension type Qualified Code(s): I95.9 - Hypotension, unspecified Is this a current diagnosis for this admission?: Yes Plan: She required intravenous norepinephrine in addition to volume, normal saline (2) Acute kidney injury Is this a current diagnosis for this admission?: Yes Plan: The acute kidney injury continues to improve with IV fluid hydration (3) Acute gastroenteritis Is this a current diagnosis for this admission?: Yes (4) Hyponatremia Is this a current diagnosis for this admission?: Yes (5) Hypokalemia Is this a current diagnosis for this admission?: Yes Plan: Replenished potassium
[2018-06-14] MEDS: NORMAL SALINE 1000 ML 1,000 ML IV PRN ×3 (02:23→20:02)
[2018-06-14] MEDS: METRONIDAZOLE 500 MG/NS RTU 500 MG/100 ML RTUPB IV SCH ×4 (02:23→20:02)
[2018-06-14 04:15] LABS: ABSOLUTE LYMPHOCYTES (AUTO) 1.1 10^3/uL (0.5-4.7); ABSOLUTE NEUT (AUTO) 7.3 10^3/uL (1.7-8.2); BASOPHILS % (AUTO) 0.3 % (0-2); EOSINOPHILS % (AUTO) 0.5 % (0-6); HEMATOCRIT 26.5 % (36.0-47.0); HEMOGLOBIN 9.2 g/dL (12.0-15.5); LYMPHOCYTES % (AUTO) 11.7 % (13-45); MEAN CORPUSCULAR HEMOGLOBIN 29.5 pg (27.0-33.4); MEAN CORPUSCULAR HGB CONC 34.9 g/dL (32.0-36.0); MEAN CORPUSCULAR VOLUME 85 fl (80-97); MONOCYTES % (AUTO) 10.8 % (3-13); PLATELET COUNT 150 10^3/uL (150-450); RED BLOOD COUNT 3.12 10^6/uL (3.72-5.28); RED CELL DISTRIBUTION WIDTH 14.1 % (11.5-14.0); SEGMENTED NEUTROPHILS % (AUTO) 76.7 % (42-78); TOTAL CELLS COUNTED % (AUTO) 100 %; WHITE BLOOD COUNT 9.5 10^3/uL (4.0-10.5)
[2018-06-14 04:31] LABS: ALANINE AMINOTRANSFERASE 25 U/L (9-52); ALBUMIN 2.2 g/dL (3.5-5.0); ALKALINE PHOSPHATASE 51 U/L (38-126); ANION GAP 7 (5-19); ASPARTATE AMINO TRANSFERASE 17 U/L (14-36); BILIRUBIN,DIRECT 0.3 mg/dL (0.0-0.4); BILIRUBIN,TOTAL 0.3 mg/dL (0.2-1.3); BLOOD UREA NITROGEN 15 mg/dL (7-20); CARBON DIOXIDE 17 mmol/L (22-30); CHLORIDE 113 mmol/L (98-107); GLUCOSE 86 mg/dL (75-110); POTASSIUM 3.1 mmol/L (3.6-5.0); SODIUM 137.1 mmol/L (137-145); TOTAL PROTEIN 4.4 g/dL (6.3-8.2)
[2018-06-14] MEDS: ACETAMINOPHEN 325 MG TABLET PO PRN ×3 (04:50→19:06)
[2018-06-14] MEDS: ONDANSETRON HCL INJ/PF 4 MG/2 ML SDV IV PRN ×3 (05:34→19:06)
[2018-06-14] MEDS: POTASSI CL 20 MEQ/50 ML RIDER 20 MEQ/50 ML RTUPB IV SCH ×3 (13:48→17:13)
[2018-06-14] MEDS: CIPROFLOXACIN HCL 500 MG TABLET PO SCH ×2 (15:07→21:52)
[2018-06-14] MEDS ORDERED: PANTOPRAZOLE SODIUM 40 MG TABLET.DR PO ONE (20:00)
--- NOTE | 2018-06-14 21:31 | PDOC PROGRESS REPORT ---
Subjective Progress Note for:: 06/14/18 Subjective:: Patient seen by the bedside, she is presently off the Levophed, she complained of dysuria, urine culture grew E. coli, she will be downgraded to the floor Reason For Visit: HYPOTENSION, ACUTE KIDNEY INJURY, DIARRHEA Physical Exam Vital Signs: Temp Pulse Resp BP Pulse Ox 97.9 F 67 18 130/79 H 100 06/14/18 16:00 06/14/18 16:00 06/14/18 18:00 06/14/18 16:32 06/14/18 16:32 Intake & Output 06/13/18 06/14/18 06/15/18 06:59 06:59 06:59 Intake Total 2845 3353 3033 Output Total 1830 1500 900 Balance 1015 1853 2133 Weight 63.4 kg 66.7 kg General appearance: PRESENT: no acute distress, well-developed, well-nourished Head exam: PRESENT: atraumatic, normocephalic Eye exam: PRESENT: conjunctiva pink, EOMI, PERRLA. ABSENT: scleral icterus Ear exam: PRESENT: normal external ear exam Mouth exam: PRESENT: moist, tongue midline Neck exam: PRESENT: full ROM. ABSENT: carotid bruit, JVD, lymphadenopathy, thyromegaly Cardiovascular exam: PRESENT: RRR. ABSENT: diastolic murmur, rubs, systolic murmur Pulses: PRESENT: normal dorsalis pedis pul, +2 pedal pulses bilateral Vascular exam: PRESENT: normal capillary refill GI/Abdominal exam: PRESENT: normal bowel sounds, soft. ABSENT: distended, guarding, mass, organolmegaly, rebound, tenderness Rectal exam: PRESENT: deferred Neurological exam: PRESENT: alert, awake, oriented to person, oriented to place, oriented to time, oriented to situation, CN II-XII grossly intact. ABSENT: nathaly r sensory deficit Psychiatric exam: PRESENT: appropriate affect, normal mood. ABSENT: homicidal ideation, suicidal ideation Skin exam: PRESENT: dry, intact, warm. ABSENT: cyanosis, rash Results Laboratory Results: 06/14/18 04:08 06/14/18 04:08 06/14/18 06/14/18 04:08 04:08 WBC 9.5 RBC 3.12 L Hgb 9.2 L Hct 26.5 L MCV 85 MCH 29.5 MCHC 34.9 RDW 14.1 H Plt Count 150 Seg Neutrophils % 76.7 Lymphocytes % 11.7 L Monocytes % 10.8 Eosinophils % 0.5 Basophils % 0.3 Absolute Neutrophils 7.3 Absolute Lymphocytes 1.1 Absolute Monocytes 1.0 Absolute Eosinophils 0.0 Absolute Basophils 0.0 Sodium 137.1 Potassium 3.1 L Chloride 113 H Carbon Dioxide 17 L Anion Gap 7 BUN 15 Creatinine 1.08 Est GFR ( Amer) > 60 Est GFR (Non-Af Amer) 51 L Glucose 86 Calcium 8.0 L Total Bilirubin 0.3 AST 17 ALT 25 Alkaline Phosphatase 51 Total Protein 4.4 L Albumin 2.2 L 06/12/18 05:35 Clean Catch Midstream Urine Culture - Final Escherichia Coli 06/12/18 06/12/18 06/12/18 08:40 08:40 14:24 Creatine Kinase 105 108 Troponin I < 0.012 06/12/18 06/12/18 06/12/18 14:24 20:17 20:53 Creatine Kinase 87 Troponin I < 0.012 < 0.012 Impressions: Chest X-Ray 06/12/18 00:00 IMPRESSION: 1. No definite acute intrathoracic disease. 2. The tip of the right IJ central venous catheter overlies the region of the proximal SVC. Abdomen/Pelvis CT 06/12/18 04:39 IMPRESSION: Fatty infiltrative change to the liver. Status post cholecystectomy. Moderate atheromatous change TECHNICAL DOCUMENTATION: Quality ID # 436: Final reports with documentation of one or more dose reduction techniques (e.g., Automated exposure control, adjustment of the mA and/or kV according to patient size, use of iterative reconstruction technique) copyright 2011 [employer] All Rights Reserved Assessment & Plan - Diagnosis (1) Hypotension Qualifiers: Hypotension type: unspecified hypotension type Qualified Code(s): I95.9 - Hypotension, unspecified Is this a current diagnosis for this admission?: Yes Plan: Resolved (2) Acute kidney injury Is this a current diagnosis for this admission?: Yes Plan: Resolved (3) Acute gastroenteritis Is this a current diagnosis for this admission?: Yes (4) Hyponatremia Is this a current diagnosis for this admission?: Yes (5) Hypokalemia Is this a current diagnosis for this admission?: Yes (6) E. coli UTI Is this a current diagnosis for this admission?: Yes Plan: Start p.o. Cipro
[2018-06-14] MEDS ORDERED: CIPROFLOXACIN HCL 500 MG TABLET ONE (21:37)
[2018-06-15] MEDS: ACETAMINOPHEN 325 MG TABLET PO PRN ×4 (01:22→21:19)
[2018-06-15] MEDS: ONDANSETRON HCL INJ/PF 4 MG/2 ML SDV IV PRN ×4 (01:22→21:19)
[2018-06-15] MEDS: METRONIDAZOLE 500 MG/NS RTU 500 MG/100 ML RTUPB IV SCH ×4 (02:51→21:19)
[2018-06-15] MEDS: NORMAL SALINE 1000 ML 1,000 ML IV PRN ×3 (02:52→21:20)
[2018-06-15] MEDS: PANTOPRAZOLE SODIUM 40 MG TABLET.DR PO SCH (05:17)
[2018-06-15 05:43] LABS: ABSOLUTE EOSINOPHILS # (AUTO) 0.1 10^3/uL (0.0-0.6); ABSOLUTE LYMPHOCYTES (AUTO) 1.4 10^3/uL (0.5-4.7); ABSOLUTE MONOCYTES (AUTO) 1.2 10^3/uL (0.1-1.4); ABSOLUTE NEUT (AUTO) 6.3 10^3/uL (1.7-8.2); BASOPHILS % (AUTO) 0.4 % (0-2); HEMATOCRIT 24.4 % (36.0-47.0); HEMOGLOBIN 8.6 g/dL (12.0-15.5); LYMPHOCYTES % (AUTO) 15.2 % (13-45); MEAN CORPUSCULAR HEMOGLOBIN 29.7 pg (27.0-33.4); MEAN CORPUSCULAR HGB CONC 35.4 g/dL (32.0-36.0); MEAN CORPUSCULAR VOLUME 84 fl (80-97); MONOCYTES % (AUTO) 13.3 % (3-13); PLATELET COUNT 174 10^3/uL (150-450); RED BLOOD COUNT 2.91 10^6/uL (3.72-5.28); RED CELL DISTRIBUTION WIDTH 14.7 % (11.5-14.0); SEGMENTED NEUTROPHILS % (AUTO) 70.1 % (42-78); TOTAL CELLS COUNTED % (AUTO) 100 %
[2018-06-15 05:48] LABS: ALANINE AMINOTRANSFERASE 29 U/L (9-52); ALKALINE PHOSPHATASE 49 U/L (38-126); ANION GAP 5 (5-19); ASPARTATE AMINO TRANSFERASE 13 U/L (14-36); BILIRUBIN,DIRECT 0.3 mg/dL (0.0-0.4); BILIRUBIN,TOTAL 0.4 mg/dL (0.2-1.3); BLOOD UREA NITROGEN 7 mg/dL (7-20); CALCIUM 7.2 mg/dL (8.4-10.2); CARBON DIOXIDE 17 mmol/L (22-30); CHLORIDE 116 mmol/L (98-107); GLUCOSE 83 mg/dL (75-110); POTASSIUM 3.2 mmol/L (3.6-5.0); SODIUM 137.9 mmol/L (137-145); TOTAL PROTEIN 4.2 g/dL (6.3-8.2)
[2018-06-15] MEDS: CIPROFLOXACIN HCL 500 MG TABLET PO SCH ×2 (10:29→21:19)
[2018-06-15] MEDS ORDERED: CHLORPHENIRAMINE MALEATE 4 MG TABLET PO PRN (15:19)
[2018-06-15] MEDS: HYDROXYCHLOROQUINE SULFATE 200 MG TABLET PO SCH (17:13)
[2018-06-15] MEDS: LEVOTHYROXINE SODIUM 0.1 MG TABLET PO SCH (17:13)
--- NOTE | 2018-06-15 20:53 | PDOC PROGRESS REPORT ---
Subjective Progress Note for:: 06/15/18 Subjective:: Patient seen by the bedside, she is presently off the Levophed, she complained of dysuria, urine culture grew E. coli, she will be downgraded to the floor Reason For Visit: HYPOTENSION, ACUTE KIDNEY INJURY, DIARRHEA Physical Exam Vital Signs: Temp Pulse Resp BP Pulse Ox 98.1 F 67 24 H 131/101 H 100 06/15/18 19:49 06/15/18 12:00 06/15/18 14:00 06/15/18 16:00 06/14/18 16:32 Intake & Output 06/14/18 06/15/18 06/16/18 06:59 06:59 06:59 Intake Total 3353 4633 1200 Output Total 1500 2200 1400 Balance 1853 2433 -200 Weight 66.7 kg 69 kg General appearance: PRESENT: no acute distress, well-developed, well-nourished Head exam: PRESENT: atraumatic, normocephalic Eye exam: PRESENT: conjunctiva pink, EOMI, PERRLA Ear exam: PRESENT: normal external ear exam Mouth exam: PRESENT: moist, tongue midline Neck exam: PRESENT: full ROM Respiratory exam: PRESENT: clear to auscultation lucinda Cardiovascular exam: PRESENT: RRR, +S1, +S2 Vascular exam: PRESENT: normal capillary refill GI/Abdominal exam: PRESENT: normal bowel sounds, soft Rectal exam: PRESENT: deferred Neurological exam: PRESENT: alert, CN II-XII grossly intact Psychiatric exam: PRESENT: appropriate affect, normal mood Skin exam: PRESENT: dry, intact, warm. ABSENT: cyanosis, rash Results Laboratory Results: 06/15/18 05:24 06/15/18 05:24 06/15/18 06/15/18 06/15/18 05:24 05:24 10:00 WBC 9.0 RBC 2.91 L Hgb 8.6 L Hct 24.4 L MCV 84 MCH 29.7 MCHC 35.4 RDW 14.7 H Plt Count 174 Seg Neutrophils % 70.1 Lymphocytes % 15.2 Monocytes % 13.3 H Eosinophils % 1.0 Basophils % 0.4 Absolute Neutrophils 6.3 Absolute Lymphocytes 1.4 Absolute Monocytes 1.2 Absolute Eosinophils 0.1 Absolute Basophils 0.0 Sodium 137.9 Potassium 3.2 L Chloride 116 H Carbon Dioxide 17 L Anion Gap 5 BUN 7 Creatinine 0.84 Est GFR ( Amer) > 60 Est GFR (Non-Af Amer) > 60 Glucose 83 Calcium 7.2 L Total Bilirubin 0.4 AST 13 L ALT 29 Alkaline Phosphatase 49 Total Protein 4.2 L Albumin 2.0 L PTH Intact 159.7 H 06/12/18 06/12/18 06/12/18 08:40 08:40 14:24 Creatine Kinase 105 108 Troponin I < 0.012 06/12/18 06/12/18 06/12/18 14:24 20:17 20:53 Creatine Kinase 87 Troponin I < 0.012 < 0.012 Impressions: Chest X-Ray 06/12/18 00:00 IMPRESSION: 1. No definite acute intrathoracic disease. 2. The tip of the right IJ central venous catheter overlies the region of the proximal SVC. Abdomen/Pelvis CT 06/12/18 04:39 IMPRESSION: Fatty infiltrative change to the liver. Status post cholecystectomy. Moderate atheromatous change TECHNICAL DOCUMENTATION: Quality ID # 436: Final reports with documentation of one or more dose reduction techniques (e.g., Automated exposure control, adjustment of the mA and/or kV according to patient size, use of iterative reconstruction technique) copyright 2011 [email or web address]- All Rights Reserved Assessment & Plan - Diagnosis (1) Hypotension Qualifiers: Hypotension type: unspecified hypotension type Qualified Code(s): I95.9 - H ypotension, unspecified Is this a current diagnosis for this admission?: Yes (2) Acute kidney injury Is this a current diagnosis for this admission?: Yes (3) Acute gastroenteritis Is this a current diagnosis for this admission?: Yes (4) Hyponatremia Is this a current diagnosis for this admission?: Yes (5) Hypokalemia Is this a current diagnosis for this admission?: Yes (6) E. coli UTI Is this a current diagnosis for this admission?: Yes Plan: Start p.o. Cipro
[2018-06-15] MEDS: ATORVASTATIN CALCIUM 20 MG TABLET PO SCH (21:19)
[2018-06-16] MEDS: METRONIDAZOLE 500 MG/NS RTU 500 MG/100 ML RTUPB IV SCH ×3 (02:25→14:36)
[2018-06-16] MEDS: ACETAMINOPHEN 325 MG TABLET PO PRN ×4 (03:25→17:41)
[2018-06-16] MEDS: ONDANSETRON HCL INJ/PF 4 MG/2 ML SDV IV PRN ×3 (03:26→16:13)
[2018-06-16] MEDS: NORMAL SALINE 1000 ML 1,000 ML IV PRN ×2 (03:27→09:52)
[2018-06-16] MEDS: PANTOPRAZOLE SODIUM 40 MG TABLET.DR PO SCH ×2 (05:03→05:22)
[2018-06-16] MEDS: LEVOTHYROXINE SODIUM 0.1 MG TABLET PO SCH (05:22)
[2018-06-16] MEDS: CIPROFLOXACIN HCL 500 MG TABLET PO SCH (10:53)
[2018-06-16] MEDS: HYDROXYCHLOROQUINE SULFATE 200 MG TABLET PO SCH ×2 (10:53→17:03)
[2018-06-16] MEDS ORDERED: NORMAL SALINE INJ/PF 0.9% 10 ML SDV IV PRN (10:56)
--- NOTE | 2018-06-16 22:49 | PDOC PROGRESS REPORT ---
Subjective Progress Note for:: 06/16/18 Subjective:: Patient seen by the bedside, she is presently off the Levophed, she complained of dysuria, urine culture grew E. coli, she will be downgraded to the floor Reason For Visit: HYPOTENSION, ACUTE KIDNEY INJURY, DIARRHEA Physical Exam Vital Signs: Temp Pulse Resp BP Pulse Ox 98.3 F 60 20 141/87 H 100 06/16/18 17:25 06/16/18 17:25 06/16/18 17:25 06/16/18 17:25 06/14/18 16:32 Intake & Output 06/15/18 06/16/18 06/17/18 06:59 06:59 06:59 Intake Total 4633 3818 2313 Output Total 2200 3900 2100 Balance 2433 -82 213 Weight 69 kg 68.6 kg General appearance: PRESENT: no acute distress Eye exam: PRESENT: PERRLA Respiratory exam: PRESENT: clear to auscultation lucinda Cardiovascular exam: PRESENT: +S1, +S2 GI/Abdominal exam: PRESENT: soft Neurological exam: PRESENT: alert, CN II-XII grossly intact Results Laboratory Results: 06/15/18 05:24 06/15/18 05:24 06/12/18 06/12/18 06/12/18 08:40 08:40 14:24 Creatine Kinase 105 108 Troponin I < 0.012 06/12/18 06/12/18 06/12/18 14:24 20:17 20:53 Creatine Kinase 87 Troponin I < 0.012 < 0.012 Impressions: Chest X-Ray 06/12/18 00:00 IMPRESSION: 1. No definite acute intrathoracic disease. 2. The tip of the right IJ central venous catheter overlies the region of the proximal SVC. Abdomen/Pelvis CT 06/12/18 04:39 IMPRESSION: Fatty infiltrative change to the liver. Status post cholecystectomy. Moderate atheromatous change TECHNICAL DOCUMENTATION: Quality ID # 436: Final reports with documentation of one or more dose reduction techniques (e.g., Automated exposure control, adjustment of the mA and/or kV according to patient size, use of iterative reconstruction technique) copyright 2011 [employer]- All Rights Reserved Assessment & Plan - Diagnosis (1) Hypotension Qualifiers: Hypotension type: unspecified hypotension type Qualified Code(s): I95.9 - Hypotension, unspecified Is this a current diagnosis for this admission?: Yes Plan: Resolved (2) Acute kidney injury Is this a current diagnosis for this admission?: Yes (3) Acute gastroenteritis Is this a current diagnosis for this admission?: Yes (4) Hyponatremia Is this a current diagnosis for this admission?: Yes (5) Hypokalemia Is this a current diagnosis for this admission?: Yes (6) E. coli UTI Is this a current diagnosis for this admission?: Yes Plan: continue p.o. [place]
[2018-06-17] MEDS: ACETAMINOPHEN 325 MG TABLET PO PRN (00:01)
[2018-06-17] MEDS: ATORVASTATIN CALCIUM 20 MG TABLET PO SCH ×2 (00:02→22:45)
[2018-06-17] MEDS: METRONIDAZOLE 500 MG/NS RTU 500 MG/100 ML RTUPB IV SCH ×5 (00:04→22:38)
[2018-06-17] MEDS ORDERED: CIPROFLOXACIN HCL 500 MG TABLET ONE (00:18)
[2018-06-17] MEDS: CIPROFLOXACIN HCL 500 MG TABLET PO SCH ×3 (00:34→22:45)
[2018-06-17] MEDS: PANTOPRAZOLE SODIUM 40 MG TABLET.DR PO SCH (06:39)
[2018-06-17] MEDS: LEVOTHYROXINE SODIUM 0.1 MG TABLET PO SCH (06:39)
[2018-06-17 08:08] LABS: HEMATOCRIT 26.2 % (36.0-47.0); HEMOGLOBIN 9.2 g/dL (12.0-15.5); MEAN CORPUSCULAR HEMOGLOBIN 29.5 pg (27.0-33.4); MEAN CORPUSCULAR HGB CONC 35.2 g/dL (32.0-36.0); MEAN CORPUSCULAR VOLUME 84 fl (80-97); PLATELET COUNT 303 10^3/uL (150-450); RED BLOOD COUNT 3.13 10^6/uL (3.72-5.28); RED CELL DISTRIBUTION WIDTH 14.5 % (11.5-14.0); WHITE BLOOD COUNT 9.2 10^3/uL (4.0-10.5)
[2018-06-17 08:09] LABS: ALANINE AMINOTRANSFERASE 29 U/L (9-52); ALBUMIN 2.3 g/dL (3.5-5.0); ALKALINE PHOSPHATASE 53 U/L (38-126); ANION GAP 6 (5-19); ASPARTATE AMINO TRANSFERASE 35 U/L (14-36); BILIRUBIN,DIRECT 0.3 mg/dL (0.0-0.4); BILIRUBIN,TOTAL 0.4 mg/dL (0.2-1.3); BLOOD UREA NITROGEN 3 mg/dL (7-20); CALCIUM 7.1 mg/dL (8.4-10.2); CARBON DIOXIDE 24 mmol/L (22-30); CHLORIDE 109 mmol/L (98-107); GLUCOSE 86 mg/dL (75-110); SODIUM 139.1 mmol/L (137-145); TOTAL PROTEIN 4.7 g/dL (6.3-8.2)
[2018-06-17 08:21] LABS: POTASSIUM 2.8 mmol/L (3.6-5.0)
[2018-06-17] MEDS: ONDANSETRON HCL INJ/PF 4 MG/2 ML SDV IV PRN (08:35)
[2018-06-17 09:04] LABS: ABSOLUTE LYMPHOCYTES# (MANUAL) 1.1 10^3/uL (0.5-4.7); ABSOLUTE MONOCYTES # (MANUAL) 0.6 10^3/uL (0.1-1.4); ABSOLUTE NEUTROPHILS# (MANUAL) 7.5 10^3/uL (1.7-8.2); BASOPHILS % (MANUAL) 0 % (0-2); EOSINOPHILS % (MANUAL) 1 % (0-6); LYMPHOCYTES % (MANUAL) 12 % (13-45); MONOCYTES % (MANUAL) 6 % (3-13); SEGMENTED NEUTROPHILS % (MAN) 81 % (42-78); TOTAL CELLS COUNTED 100
[2018-06-17 09:08] LABS: OVALOCYTES SLIGHT; POIKILOCYTOSIS SLIGHT; TOXIC GRANULATION SLIGHT; TOXIC VACUOLATION PRESENT
[2018-06-17 09:09] LABS: PLATELET COMMENT ADEQUATE
[2018-06-17] MEDS: HYDROXYCHLOROQUINE SULFATE 200 MG TABLET PO SCH ×2 (16:56→17:05)
[2018-06-17] MEDS: POTASSIUM CHLORIDE 10 MEQ CAPSULE.ER PO SCH ×2 (16:57→22:36)
--- NOTE | 2018-06-17 20:34 | PDOC PROGRESS REPORT ---
Subjective Progress Note for:: 06/17/18 Subjective:: She complain of lower abdominal pain, insomnia, She has E. coli UTI, the lower abdominal pain is most likely from cystitis Reason For Visit: HYPOTENSION, ACUTE KIDNEY INJURY, DIARRHEA Physical Exam Vital Signs: Temp Pulse Resp BP Pulse Ox 98.1 F 61 16 143/76 H 95 06/17/18 08:43 06/17/18 08:43 06/17/18 08:43 06/17/18 08:43 06/17/18 08:43 Intake & Output 06/16/18 06/17/18 06/18/18 06:59 06:59 06:59 Intake Total 3818 2413 618 Output Total 3900 2100 Balance -82 313 618 Weight 68.6 kg 68.6 kg General appearance: PRESENT: no acute distress Head exam: PRESENT: atraumatic, normocephalic Eye exam: PRESENT: conjunctiva pink, EOMI, PERRLA Neck exam: PRESENT: full ROM Respiratory exam: PRESENT: clear to auscultation lucinda Cardiovascular exam: PRESENT: RRR, +S1, +S2 Vascular exam: PRESENT: normal capillary refill GI/Abdominal exam: PRESENT: normal bowel sounds, soft Rectal exam: PRESENT: deferred Neurological exam: PRESENT: alert, CN II-XII grossly intact Psychiatric exam: PRESENT: appropriate affect, normal mood Skin exam: PRESENT: dry, intact, warm. ABSENT: cyanosis, rash Results Laboratory Results: 06/17/18 05:55 06/17/18 05:55 06/17/18 06/17/18 05:55 05:55 WBC 9.2 RBC 3.13 L Hgb 9.2 L Hct 26.2 L MCV 84 MCH 29.5 MCHC 35.2 RDW 14.5 H Plt Count 303 Seg Neutrophils % Not Reportable Lymphocytes % Not Reportable Monocytes % Not Reportable Eosinophils % Not Reportable Basophils % Not Reportable Absolute Neutrophils Not Reportable Absolute Lymphocytes Not Reportable Absolute Monocytes Not Reportable Absolute Eosinophils Not Reportable Absolute Basophils Not Reportable Sodium 139.1 Potassium 2.8 L* Chloride 109 H Carbon Dioxide 24 Anion Gap 6 BUN 3 L Creatinine 0.74 Est GFR ( Amer) > 60 Est GFR (Non-Af Amer) > 60 Glucose 86 Calcium 7.1 L Total Bilirubin 0.4 AST 35 ALT 29 Alkaline Phosphatase 53 Total Protein 4.7 L Albumin 2.3 L 06/12/18 08:40 Blood Blood Culture - Final NO GROWTH IN 5 DAYS 06/12/18 04:45 Blood Blood Culture - Final NO GROWTH IN 5 DAYS 06/12/18 06/12/18 06/12/18 08:40 08:40 14:24 Creatine Kinase 105 108 Troponin I < 0.012 06/12/18 06/12/18 06/12/18 14:24 20:17 20:53 Creatine Kinase 87 Troponin I < 0.012 < 0.012 Impressions: Chest X-Ray 06/12/18 00:00 IMPRESSION: 1. No definite acute intrathoracic disease. 2. The tip of the right IJ central venous catheter overlies the region of the proximal SVC. Abdomen/Pelvis CT 06/12/18 04:39 IMPRESSION: Fatty infiltrative change to the liver. Status post cholecystectomy. Moderate atheromatous change TECHNICAL DOCUMENTATION: Quality ID # 436: Final reports with documentation of one or more dose reduction techniques (e.g., Automated exposure control, adjustment of the mA and/or kV according to patient size, use of iterative reconstruction technique) copyright 2011 [employer]- All Rights Reserved Assessment & Plan - Diagnosis (1) Hypotension Qualifiers: Hypotension type: unspecified hypotension type Qualified Code(s): I95.9 - Hypotension, unspecified Is this a current diagnosis for this admission?: Yes (2) Acute kidney injury Is this a current diagnosis for this admission?: Yes (3) Acute gastroenteritis Is this a current diagnosis for this admission?: Yes (4) Hyponatremia Is this a current diagnosis for this admission?: Yes (5) Hypokalemia Is this a current diagnosis for this admission?: Yes (6) E. coli UTI Is this a current diagnosis for this admission?: Yes Plan: She prescribed Pyridium, 200 mg 1 tablet 3 times a day for 2 days
[2018-06-17] MEDS: ZOLPIDEM TARTRATE 5 MG TABLET PO SCH (22:35)
[2018-06-17] MEDS: PHENAZOPYRIDINE HCL 200 MG TABLET PO SCH (22:38)
[2018-06-18] MEDS: POTASSIUM CHLORIDE 10 MEQ CAPSULE.ER PO SCH ×3 (03:48→09:28)
[2018-06-18] MEDS: METRONIDAZOLE 500 MG/NS RTU 500 MG/100 ML RTUPB IV SCH ×4 (03:49→21:41)
[2018-06-18] MEDS: NORMAL SALINE 1000 ML 1,000 ML IV PRN (03:56)
[2018-06-18] MEDS: PANTOPRAZOLE SODIUM 40 MG TABLET.DR PO SCH (06:10)
[2018-06-18] MEDS: LEVOTHYROXINE SODIUM 0.1 MG TABLET PO SCH (06:11)
[2018-06-18] MEDS: PHENAZOPYRIDINE HCL 200 MG TABLET PO SCH ×3 (06:11→21:41)
[2018-06-18] MEDS: CIPROFLOXACIN HCL 500 MG TABLET PO SCH ×2 (09:51→21:41)
[2018-06-18] MEDS: ONDANSETRON HCL INJ/PF 4 MG/2 ML SDV IV PRN (09:55)
[2018-06-18] MEDS: HYDROXYCHLOROQUINE SULFATE 200 MG TABLET PO SCH ×2 (10:45→18:19)
[2018-06-18 14:32] LABS: HEMATOCRIT 27.9 % (36.0-47.0); HEMOGLOBIN 9.6 g/dL (12.0-15.5); MEAN CORPUSCULAR HGB CONC 34.5 g/dL (32.0-36.0); MEAN CORPUSCULAR VOLUME 84 fl (80-97); PLATELET COUNT 337 10^3/uL (150-450); RED BLOOD COUNT 3.31 10^6/uL (3.72-5.28); RED CELL DISTRIBUTION WIDTH 14.6 % (11.5-14.0); WHITE BLOOD COUNT 8.8 10^3/uL (4.0-10.5)
[2018-06-18 14:50] LABS: ALANINE AMINOTRANSFERASE 33 U/L (9-52); ALBUMIN 2.6 g/dL (3.5-5.0); ALKALINE PHOSPHATASE 59 U/L (38-126); ANION GAP 7 (5-19); ASPARTATE AMINO TRANSFERASE 36 U/L (14-36); BILIRUBIN,DIRECT 0.1 mg/dL (0.0-0.4); BILIRUBIN,TOTAL 0.4 mg/dL (0.2-1.3); BLOOD UREA NITROGEN 4 mg/dL (7-20); CARBON DIOXIDE 23 mmol/L (22-30); CHLORIDE 109 mmol/L (98-107); GLUCOSE 122 mg/dL (75-110); POTASSIUM 3.9 mmol/L (3.6-5.0); TOTAL PROTEIN 5.3 g/dL (6.3-8.2)
[2018-06-18 14:59] LABS: CALCIUM 6.7 mg/dL (8.4-10.2)
[2018-06-18 15:11] LABS: ABSOLUTE LYMPHOCYTES# (MANUAL) 2.3 10^3/uL (0.5-4.7); ABSOLUTE MONOCYTES # (MANUAL) 0.4 10^3/uL (0.1-1.4); BASOPHILS % (MANUAL) 0 % (0-2); EOSINOPHILS % (MANUAL) 1 % (0-6); LYMPHOCYTES % (MANUAL) 26 % (13-45); MONOCYTES % (MANUAL) 5 % (3-13); SEGMENTED NEUTROPHILS % (MAN) 68 % (42-78); TOTAL CELLS COUNTED 100
[2018-06-18 15:12] LABS: ANISOCYTOSIS SLIGHT; OVALOCYTES 1+; PLATELET COMMENT ADEQUATE; POIKILOCYTOSIS 1+; TOXIC GRANULATION 1+
--- NOTE | 2018-06-18 17:55 | PDOC PROGRESS REPORT ---
Subjective Progress Note for:: 06/18/18 Subjective:: Patient was seen by the bedside, the hypokalemia is corrected, she has less lower abdominal pain on Pyridium, the initial plan was for potential discharge home today but she had episode of diarrhea today, the stool ordered for C. difficile toxin. Reason For Visit: HYPOTENSION, ACUTE KIDNEY INJURY, DIARRHEA Physical Exam Vital Signs: Temp Pulse Resp BP Pulse Ox 97.8 F 69 18 137/78 H 96 06/18/18 11:25 06/18/18 11:25 06/18/18 11:25 06/18/18 11:25 06/18/18 11:25 Intake & Output 06/17/18 06/18/18 06/19/18 06:59 06:59 06:59 Intake Total 2413 918 603 Output Total 2100 Balance 313 918 603 Weight 68.6 kg 62.3 kg General appearance: PRESENT: no acute distress Eye exam: PRESENT: PERRLA Respiratory exam: PRESENT: clear to auscultation lucinda Cardiovascular exam: PRESENT: +S1, +S2 GI/Abdominal exam: PRESENT: soft Neurological exam: PRESENT: alert Results Laboratory Results: 06/18/18 14:07 06/18/18 14:07 06/18/18 06/18/18 14:07 14:07 WBC 8.8 RBC 3.31 L Hgb 9.6 L Hct 27.9 L MCV 84 MCH 29.0 MCHC 34.5 RDW 14.6 H Plt Count 337 Seg Neutrophils % Not Reportable Lymphocytes % Not Reportable Monocytes % Not Reportable Eosinophils % Not Reportable Basophils % Not Reportable Absolute Neutrophils Not Reportable Absolute Lymphocytes Not Reportable Absolute Monocytes Not Reportable Absolute Eosinophils Not Reportable Absolute Basophils Not Reportable Sodium 139.0 Potassium 3.9 Chloride 109 H Carbon Dioxide 23 Anion Gap 7 BUN 4 L Creatinine 0.69 Est GFR ( Amer) > 60 Est GFR (Non-Af Amer) > 60 Glucose 122 H Calcium 6.7 L* Total Bilirubin 0.4 AST 36 ALT 33 Alkaline Phosphatase 59 Total Protein 5.3 L Albumin 2.6 L 06/12/18 06/12/18 06/12/18 08:40 08:40 14:24 Creatine Kinase 105 108 Troponin I < 0.012 06/12/18 06/12/18 06/12/18 14:24 20:17 20:53 Creatine Kinase 87 Troponin I < 0.012 < 0.012 Impressions: Chest X-Ray 06/12/18 00:00 IMPRESSION: 1. No definite acute intrathoracic disease. 2. The tip of the right IJ central venous catheter overlies the region of the proximal SVC. Abdomen/Pelvis CT 06/12/18 04:39 IMPRESSION: Fatty infiltrative change to the liver. Status post cholecystectomy. Moderate atheromatous change TECHNICAL DOCUMENTATION: Quality ID # 436: Final reports with documentation of one or more dose reduction techniques (e.g., Automated exposure control, adjustment of the mA and/or kV according to patient size, use of iterative reconstruction technique) copyright 2011 [employer]- All Rights Reserved Assessment & Plan - Diagnosis (1) Hypotension Qualifiers: Hypotension type: unspecified hypotension type Qualified Code(s): I95.9 - Hypotension, unspecified Is this a current diagnosis for this admission?: Yes Plan: Resolved (2) Acute kidney injury Is this a current diagnosis for this admission?: Yes Plan: Resolved (3) Acute gastroenteritis Is this a current diagnosis for this admission?: Yes Plan: resolved (4) Hyponatremia Is this a current diagnosis for this admission?: Yes Plan: This is due to hyponatremic hypovolemia (5) Hypokalemia Is this a current diagnosis for this admission?: Yes Plan: potassium corrected (6) E. coli UTI Is this a current diagnosis for this admission?: Yes Plan: She prescribed Pyridium, 200 mg 1 tablet 3 times a day for 2 days
[2018-06-18] MEDS: ZOLPIDEM TARTRATE 5 MG TABLET PO SCH (21:41)
[2018-06-18] MEDS: ATORVASTATIN CALCIUM 20 MG TABLET PO SCH (21:42)
[2018-06-18] MEDS: ACETAMINOPHEN 325 MG TABLET PO PRN (21:42)
[2018-06-19] MEDS: NORMAL SALINE 1000 ML 1,000 ML IV PRN (03:23)
[2018-06-19] MEDS: METRONIDAZOLE 500 MG/NS RTU 500 MG/100 ML RTUPB IV SCH (03:24)
[2018-06-19] MEDS: PANTOPRAZOLE SODIUM 40 MG TABLET.DR PO SCH (05:31)
[2018-06-19] MEDS: PHENAZOPYRIDINE HCL 200 MG TABLET PO SCH (05:31)
[2018-06-19] MEDS: LEVOTHYROXINE SODIUM 0.1 MG TABLET PO SCH (05:31)
[2018-06-19] MEDS: HYDROXYCHLOROQUINE SULFATE 200 MG TABLET PO SCH (10:29)
[2018-06-19] MEDS: CIPROFLOXACIN HCL 500 MG TABLET PO SCH (10:30)
--- NOTE | 2018-06-19 11:19 | PDOC DISCHARGE SUMMARY ---
General - Admit/Disc Date/PCP Admission Date/Primary Care Provider: 06/12/18 08:24 DORIS HU MD Discharge Date: 06/19/18 - Discharge Diagnosis (1) Hypotension Is this a current diagnosis for this admission?: Yes (2) Acute kidney injury Is this a current diagnosis for this admission?: Yes (3) Acute gastroenteritis Is this a current diagnosis for this admission?: Yes (4) Hyponatremia Is this a current diagnosis for this admission?: Yes (5) Hypokalemia Is this a current diagnosis for this admission?: Yes (6) E. coli UTI Is this a current diagnosis for this admission?: Yes - Additional Information Home Medications: Chlorpheniramine Maleate [Chlor-Trimeton 4 mg Tablet] 4 mg PO Q6HP PRN 06/12/18 Dexlansoprazole [Dexilant 60 mg Capsule] 60 mg PO DAILY 06/12/18 Hydroxychloroquine Sulfate [Plaquenil 200 mg Tablet] 200 mg PO BID 06/12/18 Levothyroxine Sodium [Synthroid 0.1 mg Tablet] 0.1 mg PO Q6AM 06/12/18 Meloxicam [Mobic] 7.5 mg PO DAILY 06/12/18 Methocarbamol [Robaxin 500 mg Tablet] 500 mg PO Q6HP PRN 06/12/18 Metoprolol Tartrate [Lopressor 50 mg Tablet] 50 mg PO Q12 06/12/18 Montelukast Sodium [Singulair 10 mg Tablet] 10 mg PO DAILY 06/12/18 Olmesartan/Hydrochlorothiazide [Olmesartan-Hctz 40-12.5 mg Tab] 1 tab PO DAILY 06/12/18 History of Present Illness History of Present Illness: AGUSTIN POND is a 68 year old female, She came to the emergency room for evaluation of profuse diarrhea and vomiting for the last 5 days. She said that she started having diarrhea and vomiting since Saturday of this week, the diarrhea was loose, it was melanotic, she said she also vomited blood today, that is why she decided to come to the emergency room for evaluation. In the emergency room she was found to be hypotensive, there was associated leukocytosis WBC was 19.3 with a left shift, there is hyponatremia, sodium 128 hypokalemia potassium 3.5. In the emergency room she was resuscitated with IV fluids and also intravenous norepinephrine. Patient was admitted to intensive care unit, I saw her in the unit the low blood pressure is mainly from volume loss there was associated acu te kidney injury most likely prerenal. She has been losing volume for the last 5 days, what she needed most is volume replenishment, the intravenous norepinephrine is discontinued Hospital Course Hospital Course: Patient was admitted for the management of severe hypotension, acute kidney injury, in the setting of severe diarrhea and vomiting for the last 5-7 days, She was treated initially with volume replacement therapy normal saline, despite volume therapy blood pressure remain persistently low requiring intravenous vasopressor, norepinephrine. She was treated in the intensive care unit because she required intravenous norepinephrine.The hospital course was complicated with E. coli UTI, pansensitive to all antibiotic, she was treated with cipr ofloxacin. Clostridium difficile infection was suspected as the cause of the diarrhea and vomiting, she was treated empirically with IV Flagyl, on admission there was no episode of diarrhea until yesterday when she had diarrhea stool collected was negative for C. difficile toxin, The kidney function is normalized patient feels much better, she wants to go home today Physical Exam Vital Signs: Temp Pulse Resp BP Pulse Ox 98.2 F 83 17 138/86 H 97 06/19/18 09:06 06/19/18 09:06 06/19/18 09:06 06/19/18 09:06 06/19/18 09:06 Intake & Output 06/18/18 06/19/18 06/20/18 06:59 06:59 06:59 Intake Total 918 2303 Balance 918 2303 Weight 62.3 kg 63.9 kg General appearance: PRESENT: no acute distress, well-developed, well-nourished Head exam: PRESENT: atraumatic, normocephalic Eye exam: PRESENT: conjunctiva pink, EOMI, PERRLA Ear exam: PRESENT: normal external ear exam Mouth exam: PRESENT: moist, tongue midline Neck exam: PRESENT: full ROM Respiratory exam: PRESENT: clear to auscultation lucinda Cardiovascular exam: PRESENT: RRR, +S1, +S2 Pulses: PRESENT: normal dorsalis pedis pul, +2 pedal pulses bilateral Vascular exam: PRESENT: normal capillary refill GI/Abdominal exam: PRESENT: normal bowel sounds, soft Rectal exam: PRESENT: deferred Neurological exam: PRESENT: alert, awake, oriented to person, oriented to place, oriented to time, oriented to situation, CN II-XII grossly intact Psychiatric exam: PRESENT: appropriate affect, normal mood Skin exam: PRESENT: dry, intact, warm Results Laboratory Results: 06/18/18 14:07 06/18/18 14:07 06/18/18 06/18/18 06/18/18 14:07 14:07 18:00 WBC 8.8 RBC 3.31 L Hgb 9.6 L Hct 27.9 L MCV 84 MCH 29.0 MCHC 34.5 RDW 14.6 H Plt Count 337 Seg Neutrophils % Not Reportable Lymphocytes % Not Reportable Monocytes % Not Reportable Eosinophils % Not Reportable Basophils % Not Reportable Absolute Neutrophils Not Reportable Absolute Lymphocytes Not Reportable Absolute Monocytes Not Reportable Absolute Eosinophils Not Reportable Absolute Basophils Not Reportable Sodium 139.0 Potassium 3.9 Chloride 109 H Carbon Dioxide 23 Anion Gap 7 BUN 4 L Creatinine 0.69 Est GFR ( Amer) > 60 Est GFR (Non-Af Amer) > 60 Glucose 122 H Calcium 6.7 L* Total Bilirubin 0.4 AST 36 ALT 33 Alkaline Phosphatase 59 Total Protein 5.3 L Albumin 2.6 L Stool Occult Blood NEGATIVE Stool for White Cells 06/18/18 18:00 WBC RBC Hgb Hct MCV MCH MCHC RDW Plt Count Seg Neutrophils % Lymphocytes % Monocytes % Eosinophils % Basophils % Absolute Neutrophils Absolute Lymphocytes Absolute Monocytes Absolute Eosinophils Absolute Basophils Sodium Potassium Chloride Carbon Dioxide Anion Gap BUN Creatinine Est GFR ( Amer) Est GFR (Non-Af Amer) Glucose Calcium Total Bilirubin AST ALT Alkaline Phosphatase Total Protein Albumin Stool Occult Blood Stool for White Cells NO WBCs SEEN 06/12/18 06/12/18 06/12/18 08:40 08:40 14:24 Creatine Kinase 105 108 Troponin I < 0.012 06/12/18 06/12/18 06/12/18 14:24 20:17 20:53 Creatine Kinase 87 Troponin I < 0.012 < 0.012 Impressions: Chest X-Ray 06/12/18 00:00 IMPRESSION: 1. No definite acute intrathoracic disease. 2. The tip of the right IJ central venous catheter overlies the region of the proximal SVC. Abdomen/Pelvis CT 06/12/18 04:39 IMPRESSION: Fatty infiltrative change to the liver. Status post cholecystectomy. Moderate atheromatous change TECHNICAL DOCUMENTATION: Quality ID # [id number]: Final reports with documentation of one or more dose reduction techniques (e.g., Automated exposure control, adjustment of the mA and/or kV according to patient size, use of iterative reconstruction technique) copyright 2011 [employer]- All Rights Reserved Qualifiers - * PATIENT BEING DISCHARGED WITH ANY OF THE FOLLOWING DIAGNOSIS: No
[2018-06-19 13:16] VITALS: BP 126/73
== END 2018-06-19 13:24 | disposition home or self-care (01) | DRG 315 ==
LOC: ER 04:13 → EH 08:24 → ICU 15:26 → 5 06-16 18:52
PROVIDERS: ADMIT Internal Medicine; ATTEND Internal Medicine
PROC: 02HV33Z Insertion of Infusion Device into Superior Vena Cava, Percutaneous Approach (ICD-10-PCS; principal; 2018-06-12)
DX: I95.9 Hypotension, unspecified (principal); N17.9 Acute kidney failure, unspecified; N39.0 Urinary tract infection, site not specified; E87.1 Hypo-osmolality and hyponatremia; M32.9 Systemic lupus erythematosus, unspecified; E86.0 Dehydration; K52.9 Noninfective gastroenteritis and colitis, unspecified; E87.6 Hypokalemia; B96.20 Unspecified Escherichia coli [E. coli] as the cause of diseases classified elsewhere; I10 Essential (primary) hypertension; E03.9 Hypothyroidism, unspecified; M19.90 Unspecified osteoarthritis, unspecified site; Z88.2 Allergy status to sulfonamides
CPT/HCPCS: 36415; 71045; 74176; 80048; 80053; 80061; 80076; 81001; 82140; 82150; 82272; 82550; 82803; 83036; 83605; 83690; 83735; 83970; 84100; 84439; 84443; 84484; 85025; 85610; 85730; 87040; 87045; 87086; 87088; 87186; 87205; 87493; 89055; 96361; 96365; 96368; 96375; 99291; C1751; J0696; J1642; J2405; J3480; J3490; J7030; J7060; J7120; S0164